=== PATIENT | male | born 1960 | race Caucasian/White ===

== ENCOUNTER → 2016-09-03 | Day surgery (SDC) | payer OTHER ==
[2016-09-02 09:53] VITALS: Ht 170.2 cm; Wt 97.7 kg
[~2016-09-03] VITALS: Ht 170.2 cm; Wt 97.7 kg
[~2016-09-03] MED LIST: ATOR-24 PO; ATOR-54 PO; ATROPINE SULFATE 0.1 MG/ML 5ML SYR IV PRN; BACITRACIN OINT 15 GM TUBE ONE; BUPIVACAINE/EPINEPHRINE 0.5% MPF 1:200,000 30 ML VIAL ONE; CEFAZOLIN 2000 MG/60 ML D5W IV SCH; CHOL100010 PO; ENAL10TA88 PO; EpHEDrine SULFATE INJ 50 MG/ML AMP IV PRN; FENTANYL CITRATE INJ 50 MCG/1 ML 2 ML VIAL IV PRN; FENTANYL CITRATE INJ 50 MCG/1 ML 2 ML VIAL ONE; FLUMAZENIL 0.1 MG/1 ML 10 ML VIAL IV PRN; FOLI1TAB7 PO; HYDROmorphone INJ 2 MG/ML SYR/VIAL IV PRN; IBUPROFEN 600 MG TAB PO PRN; KETOROLAC TROMETHAMINE 30 MG/ML VIAL IV. PRN; LABETALOL HCL IV 5 MG/ML 20ML IV PRN; LACT10SO17 PO; LACTATED RINGER'S 1000ML 1,000 ML IV SCH; LIDOCAINE HCL 2% 2 ML VIAL (20MG/ML) ONE; MAGN400T6 PO; MEPERIDINE HCL 25 MG/ML CARP IV PRN; METO100T7 PO; MIDAZOLAM HCL 1 MG/ML 2ML VIAL ONE; NALOXONE HCL 0.4 MG/1 ML VIAL/CARP IV PRN; ONDANSETRON INJ 2 MG/ML 2 ML VIAL IV PRN; OXYCODONE/ACETAMINOPHEN 5-325 TAB PO PRN; PANT40TA PO; PHENYLEPHRINE 100MCG/ML 5ML SYR IV PRN; PROPOFOL IV EMULSION 10 MG/ML 20 ML VIAL IV ONE; SERT50TA PO; SODIUM CHLORIDE 0.9% 1000ML 1,000 ML IV SCH; THIA1TAB PO
--- NOTE | 2016-09-03 09:54 | History & Physical Bridge Note ---
H&P Re-Evaluation Bridge Note: I have examined the patient, reviewed the History & Physical and in the interval since the performance of the History & Physical I have noted the following changes of clinical significance: No changes noted
--- NOTE | 2016-09-03 10:09 | Discharge Instructions-SurgCtr ---
Discharge Instructions Visit Reason for Visit: Sebaceous Cysts X 2 On Back; Left Groin Skin Tag Discharge Discharge Diagnosis / Problem: sebaceous cysts times 2 on back; skin tag on groin Discharge Goals Goal(s): Decrease discomfort, Improve function Activity Recommendations Activity Limitations: resume your previous activity Exercise/Sports Limitations: until after follow-up appointment May Resume Sexual Activity: when tolerated Shower/Bathe: tomorrow Anesthesia . Post Anesthesia Instructions: If you have had General Anesthesia or IV Sedation: * Do not drive today. * Resume driving when surgeon permits. * Do not make important decisions or sign legal documents today. * Call surgeon for: 1. Temperature elevations greater than 101 degrees F. 2. Uncontrollable pain. 3. Excessive bleeding. 4. Persistent nausea and vomiting. 5. Medication intolerance (nausea, vomiting or rash). * For nausea and vomiting use only clear liquids such as: tea, soda, bouillon until nausea subsides, then gradually increase diet as tolerated. * If you have any concerns or questions, call your surgeon's office. If physician is unavailable and it is an emergency, call 911 or go to the nearest emergency room. . Diet Recommendations Home Diet: resume previous diet Procedures Procedures Performed: exicsion of back cysts times 2 and groin skin tag Pending Studies Studies pending at discharge: yes (pathology reports) Medical Emergencies . Who to Call and When: Medical Emergencies: If at any time you feel your situation is an emergency, please call 911 immediately. . Non-Emergent Contact Non-Emergency issues call your: Primary Care Provider, Surgeon Call Non-Emergent contact if: temperature is above 101, wound has increased drainage, wound has increased redness . . "Provider Documentation" section prepared by Gamal Thomason.
[2016-09-03 10:53] VITALS: TEMP 36.4
--- NOTE | 2016-09-03 10:58 | [facility] Operative Report ---
Operative Report Operative Date Sep 03, 2016. Pre-Operative Diagnosis Sebaceous Cyst On Back x2, Left Groin Skin Tag Procedure(s) Performed excision heri cysts times 2 back; excision skin tag groin Surgeon Dr. Thomason Formula Room Worker Surgeon(s) None Estimated Blood Loss 5 ml Specimens A.) Sebaceous Cyst On Back X2 Anesthesia mac Complication(s) None Disposition Recovery Room / PACU I attest to the content of the Intraoperative Record and any orders documented therein. Any exceptions are noted below.
--- NOTE | 2016-09-03 11:09 | Anesthesia Progress Nt - [facility] ---
Anesthesia Post Op Note Date & Time Sep 03, 2016 at 11:09 Vital Signs Pain Intensity: 0 Vital Signs Past 12 Hours Date Time Temp Pulse Resp B/P Pulse Ox O2 Delivery O2 Flow Rate FiO2 09/03/16 09:06 36.3 75 16 138/91 95 Room Air Notes Mental Status: alert / awake / arousable, participated in evaluation Pt Amnestic to Procedure: Yes Nausea / Vomiting: adequately controlled Pain: adequately controlled Airway Patency, RR, SpO2: stable & adequate BP & HR: stable & adequate Hydration State: stable & adequate Anesthetic Complications: no major complications apparent
[2016-09-03 11:23] VITALS: BP 119/74; PULSE 52; O2SAT 97
--- NOTE | 2016-09-03 11:27 | OPERATIVE REPORT ---
DATE OF OPERATION: 09/03/2016 PREOPERATIVE DIAGNOSIS: Symptomatic cyst of the upper back, as well as a symptomatic groin skin tag. POSTOPERATIVE DIAGNOSIS: Same. PROCEDURE: 1. Excision of sebaceous cyst x2 on the back, one measuring 3 cm and one measuring 4 cm. 2. Excision of skin tag of the left groin measuring 1 cm. SURGEON: Dr. Thomason. ESTIMATED BLOOD LOSS: 15 mL. COMPLICATIONS: No immediate. ANESTHESIA: MAC with local Marcaine. OPERATIVE NOTE: After informed consent was obtained, the patient was taken to the operating suite, and placed in a prone position. IV sedation was administered by anesthesia and titrated to effect. The upper back was sterilely prepped and draped in the usual fashion. We injected with Marcaine with epinephrine around both of the upper back soft tissue cysts. We used a 10 blade scalpel to make a linear incision over the palpable cyst. Once in the skin, electrocautery, as well as blunt dissection was used to free up the cysts. They were both removed in their entirety. They were consistent with sebaceous cysts. We thoroughly irrigated the wounds. I closed both wounds with 3-0 Vicryl for the deep layers and 3-0 simple interrupted nylon for the skin. Antibiotic ointment and sterile dressings were applied. The patient was then rolled over into a supine position. The right groin skin tag was prepped. I used Marcaine as a local anesthetic. I simply excised the skin tag at its base with electrocautery. It did not require suturing. I placed some antibiotic ointment and a sterile dressing. The patient was then awakened and transferred to recovery in stable condition. I attest to the content of the Intraoperative Record and any orders documented therein. Any exceptio ns are noted below.
== END | disposition home or self-care (01) ==
LOC: X.SURG 08:44
PROVIDERS: ATTEND Surgery
DX: L72.0 Epidermal cyst (principal); L91.8 Other hypertrophic disorders of the skin; F41.9 Anxiety disorder, unspecified; I25.10 Atherosclerotic heart disease of native coronary artery without angina pectoris; R73.9 Hyperglycemia, unspecified; E78.5 Hyperlipidemia, unspecified; I10 Essential (primary) hypertension; I73.9 Peripheral vascular disease, unspecified; E55.9 Vitamin D deficiency, unspecified; Z79.899 Other long term (current) drug therapy

== ENCOUNTER → 2016-12-26 | Outpatient (CLI) | payer OTHER ==
[~2016-12-26] MED LIST changes: -ATROPINE SULFATE 0.1 MG/ML 5ML SYR IV PRN; -BACITRACIN OINT 15 GM TUBE ONE; +BACL1TAB PO; -BUPIVACAINE/EPINEPHRINE 0.5% MPF 1:200,000 30 ML VIAL ONE; -CEFAZOLIN 2000 MG/60 ML D5W IV SCH; +CHOL100041 PO; -EpHEDrine SULFATE INJ 50 MG/ML AMP IV PRN; -FENTANYL CITRATE INJ 50 MCG/1 ML 2 ML VIAL IV PRN; -FENTANYL CITRATE INJ 50 MCG/1 ML 2 ML VIAL ONE; -FLUMAZENIL 0.1 MG/1 ML 10 ML VIAL IV PRN; -HYDROmorphone INJ 2 MG/ML SYR/VIAL IV PRN; -IBUPROFEN 600 MG TAB PO PRN; -KETOROLAC TROMETHAMINE 30 MG/ML VIAL IV. PRN; -LABETALOL HCL IV 5 MG/ML 20ML IV PRN; -LACTATED RINGER'S 1000ML 1,000 ML IV SCH; -LIDOCAINE HCL 2% 2 ML VIAL (20MG/ML) ONE; -MEPERIDINE HCL 25 MG/ML CARP IV PRN; -MIDAZOLAM HCL 1 MG/ML 2ML VIAL ONE; -NALOXONE HCL 0.4 MG/1 ML VIAL/CARP IV PRN; -ONDANSETRON INJ 2 MG/ML 2 ML VIAL IV PRN; -OXYCODONE/ACETAMINOPHEN 5-325 TAB PO PRN; -PHENYLEPHRINE 100MCG/ML 5ML SYR IV PRN; -PROPOFOL IV EMULSION 10 MG/ML 20 ML VIAL IV ONE; -SODIUM CHLORIDE 0.9% 1000ML 1,000 ML IV SCH
[2016-12-26 15:42] LABS: BASO % 0.1 %; BASO ABS # 0.01 K/uL (0-0.2); COMPLETE YES; EOS % 1.4 %; HEMATOCRIT 48.1 % (42-52); IG% 0.1 %; MEAN CELL VOLUME 91.8 fL (80-100); MEAN CORPUSCULAR HEMOGLOBIN 31.5 pg (25-34); MEAN CORPUSCULAR HGB CONC 34.3 g/dl (32-36); MEAN PLATELET VOLUME 11.8 fL (7.4-10.4); MONO % 6.6 %; NEUT % 72.8 %; PLATELET COUNT 107 K/uL (130-400); RED BLOOD COUNT 5.24 M/uL (4.7-6.1); WHITE BLOOD COUNT 7.37 K/uL (4.8-10.8)
[2016-12-26 16:09] LABS: CALCIUM 9.4 mg/dl (8.5-10.1)
[2016-12-26 16:10] LABS: ALT/SGPT 31 U/L (12-78); BLOOD UREA NITROGEN 19 mg/dl (7-18); BUN/CREATININE RATIO 16.1 (10-20); CARBON DIOXIDE 28 mmol/L (21-32); CHLORIDE 104 mmol/L (98-107); CHOLESTEROL 127 mg/dl (0-200); GLUCOSE 78 mg/dl (70-99); MAGNESIUM 2.3 mg/dl (1.8-2.4); POTASSIUM 4.4 mmol/L (3.5-5.1); SODIUM 138 mmol/L (136-145); TRIGLYCERIDES 82 mg/dl (0-150); VERY LOW DENSITY LIPOPROT CALC 16 mg/dl
[2016-12-26 16:14] LABS: ALB/GLOB RATIO 1.3 (0.9-2); ALKALINE PHOSPHATASE 66 U/L (45-117); AST/SGOT 27 U/L (15-37); CHOLESTEROL/HDL RATIO 2.3; HDL CHOLESTEROL 56 mg/dl; LDL CHOLESTEROL CALCULATED 55 mg/dl; PROSTATE SPECIFIC ANTIGEN 0.645 ng/ml (0.000-4.000)
== END | disposition home or self-care (01) ==
LOC: C.LAB1850 14:58
PROVIDERS: ATTEND Internal Medicine
DX: Z12.5 Encounter for screening for malignant neoplasm of prostate (principal); E83.19 Other disorders of iron metabolism; E78.5 Hyperlipidemia, unspecified; E83.42 Hypomagnesemia; D69.6 Thrombocytopenia, unspecified

== ENCOUNTER → 2017-02-26 | Day surgery (SDC) | payer OTHER ==
[2017-02-19 12:34] VITALS: Ht 170.2 cm; Wt 97.7 kg
[~2017-02-26] VITALS: Ht 170.2 cm; Wt 97.7 kg
[~2017-02-26] MED LIST changes: -ATOR-54 PO; -BACL1TAB PO; -CHOL100041 PO; +FENTANYL CITRATE INJ 50 MCG/1 ML 2 ML VIAL ONE; +LIDOCAINE HCL 2% 2 ML VIAL (20MG/ML) ONE; +PROPOFOL IV EMULSION 10 MG/ML 20 ML VIAL IV ONE; +SODIUM CHLORIDE 0.9% 500ML 500 ML IV ONE
--- NOTE | 2017-02-26 13:45 | Endo History and Physical ---
History & Physical Date of Service: Feb 26, 2017. Chief Complaint: ESOPHAGEAL VARICES Referring Physician: DR. MONAE History of Present Illness 56 yo CM who presents for EGD secondary to esophageal varices. Past Medical History Arthritis, Anxiety, High Cholesterol, Heart Disease, Liver Disease, Other, Depression, OK Past Surgical History Hx Cardiac Surgery: Yes (HEART CATH, STENT X1) Hx Internal Defibrillator: No Hx Pacemaker: No Hx Abdominal Surgery: Yes (ANDREI) Hx of Implantable Prosthesis: No Hx Post-Op Nausea and Vomiting: No Hx Cancer Surgery: No Hx Thoracic Surgery: No Hx Orthopedic: No Hx Urinary Tract Surgery: No Family History None Social History Smoking Status: Never Smoker Hx Substance Use: Yes (SMOKES MARIJUANA NIGHTLY) Hx Alcohol Use: Yes (QUIT 5 YEARS AGO) Allergies Coded Allergies: Heparin (Verified Allergy, Severe, 03/18/12, HIT AB POSITIVE, BUT VERONA NEGATIVE, 02/19/17) 03/18/12 ([id number]) HIT AB POSITIVE, BUT VERONA NEGATIVE Aspirin (Verified Adverse Reaction, Severe, N/V, 02/26/17) Acetaminophen (Unverified Adverse Reaction, Unknown, GI SYMPTOMS, 02/19/17) liver condition Adhesives (Verified Adverse Reaction, Unknown, RASH, 02/19/17) Current Medications Reported Home Medications Medications Dose Route/Sig Max Daily Dose Days Date Category Lipitor (Atorvastatin Calcium) 40 Mg Tab 40 Mg PO QPM 02/19/17 Reported Zoloft (Sertraline Hcl) 50 Mg Tab 50 Mg PO QAM 09/02/16 Reported Vitamin D (Cholecalciferol) 1,000 Inter.unit Tab 1,000 Inter.unit PO QAM 03/02/14 Reported Vasotec (Enalapril Maleate) 10 Mg Tab 10 Mg PO QAM 03/02/14 Reported Mag-Ox (Magnesium Oxide) 400 Mg Tab 400 Mg PO QAM 01/02/13 Reported B-1 (Thiamine Hcl) 100 Mg Tab 100 Mg PO QAM 12/01/12 Reported Chronulac (Lactulose) 10 Gm/15 Ml Syrp 15 Ml PO BID 12/01/12 Reported Folvite (Folic Acid) 1 Mg Tab 1 Mg PO QAM 12/01/12 Reported Toprol Xl (Metoprolol Succinate) 100 Mg Tab 100 Mg PO QAM 12/01/12 Reported Protonix (Pantoprazole Sodium) 40 Mg Tab 40 Mg PO QAM 05/02/12 Reported Vital Signs Weight (Kilograms): 97.73 Height (Feet): 5 Height (Inches): 7 Date Time Temp Pulse Resp B/P (MAP) Pulse Ox O2 Delivery O2 Flow Rate FiO2 02/26/17 13:20 36.5 54 20 128/72 (90) 96 Room Air Physical Exam General Appearance: WD/WN, no apparent distress Respiratory/Chest: Auscultation: breath sounds normal Cardiovascular: Heart Auscultation: RRR Abdomen: Bowel Sounds: normal Inspection & Palpation: soft, non-distended, no tenderness, guarding & rebound Assessment and Plan Assessment: 56 yo CM who presents for EGD secondary to esophageal varices. Plan: Proceed with EGD.
--- NOTE | 2017-02-26 14:04 | GI REPORT ---
Procedure Date: 02/26/2017 1:44 PM Procedure: Upper GI endoscopy Indications: Cirrhosis rule out esophageal varices Medicines: Monitored Anesthesia Care Complications: No immediate complications. Estimated Blood Loss: Estimated blood loss: none. Procedure: Pre-Anesthesia Assessment: - Prior to the procedure, a History and Physical was performed, and patient medications and allergies were reviewed. The patient's tolerance of previous anesthesia was also reviewed. The risks and benefits of the procedure and the sedation options and risks were discussed with the patient. All questions were answered, and informed consent was obtained. Prior Anticoagulants: The patient has taken no previous anticoagulant or antiplatelet agents. ASA Grade Assessment: III - A patient with severe systemic disease. After reviewing the risks and benefits, the patient was deemed in satisfactory condition to undergo the procedure. After obtaining informed consent, the endoscope was passed under direct vision. Throughout the procedure, the patient's blood pressure, pulse, and oxygen saturations were monitored continuously. The scope was introduced through the mouth, and advanced to the second part of duodenum. The upper GI endoscopy was accomplished without difficulty. The patient tolerated the procedure well. Findings: The Z-line was irregular. Biopsies were taken with a cold forceps for histology. A small hiatus hernia was present. Multiple 3 to 8 mm sessile polyps with no stigmata of recent bleeding were found in the stomach. The examined duodenum was normal. Impression: - Z-line irregular. Biopsied. - Small hiatus hernia. - Multiple gastric polyps. - Normal examined duodenum. Recommendation: - Resume previous diet. - Continue present medications. - Await pathology results. - Return to GI office as previously scheduled. Vinicius Roe, DO 02/26/2017 2:03:55 PM This report has been signed electronically. Note Initiated On: 02/26/2017 1:44 PM I attest to the content of the Intraoperative Record and orders documented therein, exceptions below
--- NOTE | 2017-02-26 14:05 | Discharge Instructions ---
Endoscopy Patient Instructions Date / Procedure(s) Performed Feb 26, 2017. EGD Allergy Information Coded Allergies: Heparin (Verified Allergy, Severe, 03/18/12, HIT AB POSITIVE, BUT VERONA NEGATIVE, 02/19/17) 03/18/12 ([id number]) HIT AB POSITIVE, BUT VERONA NEGATIVE Aspirin (Verified Adverse Reaction, Severe, N/V, 02/26/17) Acetaminophen (Unverified Adverse Reaction, Unknown, GI SYMPTOMS, 02/19/17) liver condition Adhesives (Verified Adverse Reaction, Unknown, RASH, 02/19/17) Discharge Date / Findings Feb 26, 2017. Esophageal biopsies Hiatal hernia Gastric polyps Medication Instructions OK to resume all medications today as prescribed Reported Home Medications Medications Dose Route/Sig Max Daily Dose Days Date Category Lipitor (Atorvastatin Calcium) 40 Mg Tab 40 Mg PO QPM 02/19/17 Reported Zoloft (Sertraline Hcl) 50 Mg Tab 50 Mg PO QAM 09/02/16 Reported Vitamin D (Cholecalciferol) 1,000 Inter.unit Tab 1,000 Inter.unit PO QAM 03/02/14 Reported Vasotec (Enalapril Maleate) 10 Mg Tab 10 Mg PO QAM 03/02/14 Reported Mag-Ox (Magnesium Oxide) 400 Mg Tab 400 Mg PO QAM 01/02/13 Reported B-1 (Thiamine Hcl) 100 Mg Tab 100 Mg PO QAM 12/01/12 Reported Chronulac (Lactulose) 10 Gm/15 Ml Syrp 15 Ml PO BID 12/01/12 Reported Folvite (Folic Acid) 1 Mg Tab 1 Mg PO QAM 12/01/12 Reported Toprol Xl (Metoprolol Succinate) 100 Mg Tab 100 Mg PO QAM 12/01/12 Reported Protonix (Pantoprazole Sodium) 40 Mg Tab 40 Mg PO QAM 05/02/12 Reported Provider Instructions Activity Restrictions - No exercising or heavy lifting for 24 hours. - Do not drink alcohol the day of the procedure. - Do not drive a car or operate machinery until the day after the procedure. - Do not make any important decisions or sign important papers in 24 hours after the procedure. Following Day: - Return to full activity which may include returning to work/school. Diet Start your diet with liquids and light foods (jello, soup, juice, toast). Then eat your usual diet if not nauseated. Treatment For Common After Affects For mild abdominal pain, bloating, or excessive gas: - Rest - Eat lightly - Lie on right side Follow-Up Information Follow-up with DR. MONAE as scheduled Anesthesia Information What You Should Know You have had a procedure that required some medicine to reduce anxiety and discomfort. This treatment is called moderate sedation. After receiving the treatment, you may be sleepy, but you will be able to breathe on your own. The effects of the treatment may last for several hours. Follow these instructions along with Activity/Diet recommendations noted above: * Do NOT do anything where dizziness or clumsiness would be dangerous. * Rest quietly at home today, then you can be up and about tomorrow. * Have a responsible person stay with you the rest of today. * You may have had an I.V. today. If so, you may take the dressing off later today. Recommendations Call your doctor if: * Trouble breathing * Continuous vomiting for more than 24 hours * Temperature above 101 degrees * Severe abdominal pain or bloating * Pain not relieved by pain medicine ordered * There is increased drainage or redness from any incision * A large amount of rectal bleeding greater than 2-3 tablespoons. (If you had a polyp/s removed or have hemorrhoids, a small amount of blood - from the rectum is to be expected.) * You have any unanswered questions or concerns. IN THE EVENT OF A SERIOUS EMERGENCY, GO TO THE NEAREST EMERGENCY ROOM Your discharge instructions were prepared by provider Vinicius Roe. Patient Instructions Signature Page José Mercedes Patient (or Guardian) Signature/Date: I have read and understand the instructions given to me by my caregivers. Caregiver/RN/Doctor Signature/Date: The above-named patient and/or guardian has received patient instructions on this date. + Original Patient Signature Page (only) stays with chart. Please make copy for patient.
--- NOTE | 2017-02-26 14:09 | Anesthesiology Progress Note ---
Anesthesia Post Op Note Date & Time Feb 26, 2017 at 14:09 Vital Signs Pain Intensity: 0 Vital Signs Past 12 Hours Date Time Temp Pulse Resp B/P (MAP) Pulse Ox O2 Delivery O2 Flow Rate FiO2 02/26/17 13:20 36.5 54 20 128/72 (90) 96 Room Air Notes Mental Status: alert / awake / arousable, participated in evaluation Pt Amnestic to Procedure: Yes Nausea / Vomiting: adequately controlled Pain: adequately controlled Airway Patency, RR, SpO2: stable & adequate BP & HR: stable & adequate Hydration State: stable & adequate Anesthetic Complications: no major complications apparent
[2017-02-26 14:33] VITALS: BP 100/46; PULSE 50; O2SAT 95
== END | disposition home or self-care (01) ==
LOC: C.GI 12:57
PROVIDERS: ATTEND Internal Medicine
DX: K70.30 Alcoholic cirrhosis of liver without ascites (principal); K44.9 Diaphragmatic hernia without obstruction or gangrene; K31.7 Polyp of stomach and duodenum; K20.9 Esophagitis, unspecified; E78.00 Pure hypercholesterolemia, unspecified; F41.9 Anxiety disorder, unspecified; F32.9 Major depressive disorder, single episode, unspecified; F10.21 Alcohol dependence, in remission; Z79.899 Other long term (current) drug therapy; I25.2 Old myocardial infarction

== ENCOUNTER → 2017-03-20 | Outpatient (CLI) | payer OTHER ==
[~2017-03-20] MED LIST changes: -FENTANYL CITRATE INJ 50 MCG/1 ML 2 ML VIAL ONE; -LIDOCAINE HCL 2% 2 ML VIAL (20MG/ML) ONE; -PROPOFOL IV EMULSION 10 MG/ML 20 ML VIAL IV ONE; -SODIUM CHLORIDE 0.9% 500ML 500 ML IV ONE
--- NOTE | 2017-03-20 11:23 | DIAGNOSTIC IMAGING REPORT ---
(LIVER) ABDOMEN LIMITED CLINICAL HISTORY: K74.60 Hepatic cirrhosis TECHNIQUE: Ultrasound COMPARISON STUDY: 10/30/2015 FINDINGS: Heterogeneous liver internal architecture with findings suggesting hepatic cirrhotic change. No change in the prior exam. Prior cholecystectomy. Perfusion components of the pancreas are unremarkable. Right kidney is negative for hydronephrosis. IMPRESSION: Findings suggesting hepatic cirrhotic change with no change in appearance compared to the prior study. Prior cholecystectomy. The above report was generated using voice recognition software. It may contain grammatical, syntax or spelling errors. Electronically signed by: Zi Loja M.D. 03/20/2017 11:22 AM Dictated Date/Time: 03/20/2017 11:17 AM
== END | disposition home or self-care (01) ==
LOC: C.ULTRBC 10:17
PROVIDERS: ATTEND Physician Assistant
DX: K74.60 Unspecified cirrhosis of liver (principal)

== ENCOUNTER 2017-06-07 12:21 | Emergency (ER) | payer OTHER ==
[~2017-06-07] VITALS: Ht 170.2 cm; Wt 106.5 kg
[2017-06-07 12:25] VITALS: TEMP 36.4
[2017-06-07 12:39] VITALS: O2SAT 97
[2017-06-07] MEDS ORDERED: DiphenhydrAMINE HCL 50 MG/ML VIAL IV STA (12:45)
[2017-06-07] MEDS ORDERED: SODIUM CHLORIDE 0.9% 1000ML 1,000 ML IV SCH (12:45)
[2017-06-07] MEDS ORDERED: PROCHLORPERAZINE 5 MG/ML 2 ML VIAL IV STA (12:45)
[2017-06-07 12:49] VITALS: Ht 170.2 cm; Wt 106.5 kg
[2017-06-07 13:12] LABS: BLOOD UREA NITROGEN 19 mg/dl (7-18); BUN/CREATININE RATIO 17.4 (10-20); CALCIUM 9.1 mg/dl (8.5-10.1); CARBON DIOXIDE 27 mmol/L (21-32); CHLORIDE 106 mmol/L (98-107); GLUCOSE 146 mg/dl (70-99); POTASSIUM 4.1 mmol/L (3.5-5.1); SODIUM 137 mmol/L (136-145)
--- NOTE | 2017-06-07 13:16 | EMERGENCY ROOM VISIT NOTE ---
History Report prepared by Melina: Madison Barrios Under the Supervision of: Dr. Radha Olivares M.D. First contact with patient: 12:29 Chief Complaint: NEURO SYMPTOMS Stated Complaint: SHOULDER PAIN, LEFT LOWER ARM PAIN, L FACE NUMBNES History of Present Illness The patient is a 57 year old male who presents to the Emergency Room with complaints of persistent numbness in left lower arm and left side of face that began over the past couple of days. The patient rates his pain a 6/10 in severity. He states that the pain is centered around his left elbow but it extends to the left side of the neck. The patient denies any speech difficulty or difficulty walking. He reports that he has a coronary stent in place. The patient notes that he has had a kidney stone and a "femur bypass" due to a blockage behind the knee in the past. He states that he is experiencing a headache and neck pain. The patient additionally reports nausea, but denies any vomiting. The patient notes that he occasionally uses marijuana. Source of History: patient Onset: past couple days Position: arm (left), other (left side of face) Symptom Intensity: 6/10 Quality: numbness Timing: other (persistent) Associated Symptoms: + headache, + neck pain, + nausea, No vomiting Review of Systems See HPI for pertinent positives & negatives. A total of 10 systems reviewed and were otherwise negative. Past Medical & Surgical Medical Problems: (1) Coronary artery disease (2) ESOPHAGEAL REFLUX (3) HYPERLIPIDEMIA NEC/NOS (4) Peripheral artery disease Surgical Problems: (1) S/P popliteal-distal bypass surgery Coronary artery disease Peripheral artery disease Family History Heart disease Social History Smoking Status: Never Smoker Alcohol Use: none Drug Use: marijuana Marital Status: single Housing Status: lives alone Occupation Status: other Current/Historical Medications Scheduled Atorvastatin (Lipitor), 40 MG PO QPM Baclofen (Lioresal), 10 MG PO TID Cholecalciferol (D 1000), 1 CAP PO DAILY Enalapril (Vasotec), 10 MG PO QAM Folic Acid (Folvite), 1 MG PO QAM Lactulose (Chronulac), 15 ML PO DAILY Magnesium Oxide (Mag-Ox), 400 MG PO QAM Metoprolol Succinate (Toprol Xl), 100 MG PO QAM Pantoprazole Sodium (Protonix), 40 MG PO QAM Thiamine Hcl (B-1), 100 MG PO QAM Allergies Coded Allergies: Heparin (Verified Allergy, Severe, 03/18/12, HIT AB POSITIVE, BUT VERONA NEGATIVE, 06/07/17) 03/18/12 ([id number]) HIT AB POSITIVE, BUT VERONA NEGATIVE Aspirin (Verified Adverse Reaction, Severe, N/V, 06/07/17) Acetaminophen (Unverified Adverse Reaction, Unknown, GI SYMPTOMS, 06/07/17 ) liver condition Adhesives (Verified Adverse Reaction, Unknown, RASH, 06/07/17) Physical Exam Vital Signs Date Time Temp Pulse Resp B/P (MAP) Pulse Ox O2 Delivery O2 Flow Rate FiO2 06/07/17 16:20 58 18 150/88 95 Room Air 06/07/17 14:26 57 16 140/82 97 Room Air 06/07/17 13:08 57 15 145/72 95 Room Air 06/07/17 12:51 60 06/07/17 12:39 97 Room Air 06/07/17 12:25 36.4 62 16 138/85 96 Room Air Physical Exam Vital signs reviewed. General: Well-appearing male, in no significant distress. HEENT: No scleral icterus, PERRLA, neck supple. Atraumatic. Cardiovascular: Regular rate and rhythm, no extra sounds. Pulmonary: Clear to auscultation bilaterally, normal work of breathing. Abdomen: Soft, nontender, nondistended, positive bowel sounds. Musculoskeletal: Atraumatic, no peripheral edema. Neurologic: Patient awake alert and oriented x 3, full strength in all 4 extremities. Cranial nerves 2 through 12 grossly intact. Skin: Warm, dry, no rash Medical Decision & Procedures ER Provider Diagnostic Interpretation: CT results as stated below per my review and radiologist interpretation: CT SCAN OF THE BRAIN WITHOUT IV CONTRAST CLINICAL HISTORY: Strokelike symptoms. COMPARISON STUDY: CT of the brain dated 08/02/2009. TECHNIQUE: Unenhanced axial CT scan of the brain is performed from the vertex to the skull base. CT DOSE: 614.27 mGy.cm FINDINGS: Brain parenchyma: There is minimal subcortical and periventricular microangiopathic change. Foci of left frontal and left parietal encephalomalacia are unchanged and consistent with remote infarcts. There is no hemorrhage, mass effect, or evidence of acute territorial ischemia by CT criteria. Brito-white matter is preserved. No extra-axial fluid collection is seen. Ventricles, sulci, cisterns: Normal in configuration. Intracranial vasculature: There is atherosclerotic calcification of the cavernous carotid and vertebral arteries. Calvarium: Unremarkable. Sinuses and mastoids: The visualized paranasal sinuses are clear. The mastoid air cells are well pneumatized. Orbits: The bony orbits are grossly intact. IMPRESSION: 1. There is no hemorrhage, mass effect, or evidence of acute territorial ischemia by CT criteria. 2. Remote infarcts as above, unchanged from 2009. Electronically signed by: Aristides Mendoza M.D. 06/07/2017 1:44 PM Dictated Date/Time: 06/07/2017 1:42 PM Laboratory Results 06/07/17 12:40 Red Blood Count 4.89, Mean Corpuscular Volume 89.2, Mean Corpuscular Hemoglobin 31.1, Mean Corpuscular Hemoglobin Concent 34.9, Mean Platelet Volume 12.0, Neutrophils (%) (Auto) 56.0, Lymphocytes (%) (Auto) 30.5, Monocytes (%) (Auto) 7.6, Eosinophils (%) (Auto) 4.4, Basophils (%) (Auto) 0.5, Neutrophils # (Auto) 2.15, Lymphocytes # (Auto) 1.17, Monocytes # (Auto) 0.29, Eosinophils # (Auto) 0.17, Basophils # (Auto) 0.02 06/07/17 12:40 Test 06/07/17 12:40 06/07/17 12:54 06/07/17 13:10 White Blood Count 3.84 K/uL (4.8-10.8) Red Blood Count 4.89 M/uL (4.7-6.1) Hemoglobin 15.2 g/dL (14.0-18.0) Hematocrit 43.6 % (42-52) Mean Corpuscular Volume 89.2 fL (80-100) Mean Corpuscular Hemoglobin 31.1 pg (25-34) Mean Corpuscular Hemoglobin Concent 34.9 g/dl (32-36) Platelet Count 91 K/uL (130-400) Mean Platelet Volume 12.0 fL (7.4-10.4) Neutrophils (%) (Auto) 56.0 % Lymphocytes (%) (Auto) 30.5 % Monocytes (%) (Auto) 7.6 % Eosinophils (%) (Auto) 4.4 % Basophils (%) (Auto) 0.5 % Neutrophils # (Auto) 2.15 K/uL (1.4-6.5) Lymphocytes # (Auto) 1.17 K/uL (1.2-3.4) Monocytes # (Auto) 0.29 K/uL (0.11-0.59) Eosinophils # (Auto) 0.17 K/uL (0-0.5) Basophils # (Auto) 0.02 K/uL (0-0.2) RDW Standard Deviation 39.6 fL (36.4-46.3) RDW Coefficient of Variation 12.4 % (11.5-14.5) Immature Granulocyte % (Auto) 1.0 % Immature Granulocyte # (Auto) 0.04 K/uL (0.00-0.02) Platelet Estimate DECREASED Prothrombin Time 10.5 SECONDS (9.0-12.0) Prothromb Time International Ratio 1.0 (0.9-1.1) Activated Partial Thromboplast Time 24.5 SECONDS (21.0-31.0) Partial Thromboplastin Ratio 0.9 Anion Gap 5.0 mmol/L (3-11) Est Creatinine Clear Calc Drug Dose 87.3 ml/min Estimated GFR () 86.5 Estimated GFR (Non- 74.6 BUN/Creatinine Ratio 17.4 (10-20) Calcium Level 9.1 mg/dl (8.5-10.1) Total Creatine Kinase 151 U/L (39-308) Creatine Kinase MB 2.0 ng/ml (0.5-3.6) Creatine Kinase MB Ratio 1.3 (0-3.0) Troponin I < 0.015 ng/ml (0-0.045) Bedside Prothrombin Time INR 1.0 (0.9-1.1) Bedside Glucose 125 mg/dl (70-99) Urine Color YELLOW Urine Appearance CLEAR (CLEAR) Urine pH 5.5 (4.5-7.5) Urine Specific [place] 1.030 (1.000-1.030) Urine Protein NEG (NEG) Urine Glucose (UA) NEG (NEG) Urine Ketones NEG (NEG) Urine Occult Blood NEG (NEG) Urine Nitrite NEG (NEG) Urine Bilirubin NEG (NEG) Urine Urobilinogen NEG (NEG) Urine Leukocyte Esterase NEG (NEG) Urine Opiates Screen NEG (NEG) Urine Methadone, Qualitative NEG (NEG) Urine Barbiturates NEG (NEG) Urine Phencyclidine (PCP) Level NEG (NEG) Ur Amphetamine/Methamphetamine NEG (NEG) MDMA (Ecstasy) Screen NEG (NEG) Urine Benzodiazepines Screen NEG (NEG) Urine Cocaine Metabolite NEG (NEG) Urine Marijuana (THC) POS (NEG) Laboratory results per my review. Medications Administered Medications (Trade) Dose Ordered Sig/Issac Route Start Time Stop Time Status Last Admin Dose Admin Sodium Chloride 1,000 ml @ 100 mls/hr Q10H IV 06/07/17 12:45 06/07/17 17:10 DC 06/07/17 13:01 100 MLS/HR Prochlorperazine Edisylate (Compazine Inj) 10 mg NOW STAT IV 06/07/17 12:45 06/07/17 12:48 DC 06/07/17 13:01 10 MG Diphenhydramine HCl (Benadryl Inj) 25 mg NOW STAT IV 06/07/17 12:45 06/07/17 12:48 DC 06/07/17 13:01 25 MG Hydroxyzine HCl (Vistaril Tab) 25 mg NOW STAT PO 06/07/17 14:18 06/07/17 14:19 DC 06/07/17 14:31 25 MG ECG Indication: other (numbness) Rate (beats per minute): 62 Rhythm: normal sinus Findings: LAFB, RBBB, no ectopy, other (repolarization abnormality in the anteiror leads) ED Course 1244: Past medical records reviewed. The patient was evaluated in room A10. A complete history and physical examination was performed. 1245: Ordered Benadryl Inj 25 mg IV, Compazine Inj 10 mg IV, Sodium Chloride 1000 ml @ 100 mls/hr IV. 141: I reevaluated the patient and he is resting comfortably. I discussed the exam findings with him and I discussed the treatment plan. He verbalized complete understanding and agreement. He is going to be evaluated for further treatment. 1418: Vistaril Tab 25 mg PO. 1445: I discussed the patient's case with Dr. Barrios [facility]. He is going to evaluate the patient for further treatment. Medical Decision Differential diagnosis: Etiologies such as metabolic, infection, hypo/hyperglycemia, electrolyte abnormalities, cardiac sources, intracerebral event, toxicologic, neurologic, as well as others were entertained. This pt was evaluated and appeared to be in no distress. IV access was obtained and lab work was drawn. Patient's symptomatology including left facial numbness, shoulder and arm numbness is concerning for TIA. CT scan of the head was performed and reveals old infarct. Patient chose a normal sinus rhythm with a left anterior fascicular block, right bundle branch block on EKG. No evidence of acute ischemic change. He is a vasculopath with a previous arterial bypass and cardiac stent. While this may be orthopedic in nature, I am concerned for potential cerebral event. The patient has no acute neurologic deficit at this time. The patient will be evaluated by the hospitalist service for further management. He is aware of the plan and agrees. Medication Reconcilliation Current Medication List: was personally reviewed by me Consults Time Called: 1424 Consulting Physician: JOSE CARLOS Eaton Returned Call: [phone] I discussed the patient's case with JOSE CARLOS Eaton. He is going to evaluate the patient for further treatment. Impression Primary Impression: TIA (transient ischemic attack) Scribe Attestation The scribe's documentation has been prepared under my direction and personally reviewed by me in its entirety. I confirm that the note above accurately reflects all work, treatment, procedures, and medical decision making performed by me. Departure Information Dispostion Being Evaluated By Hospitalist Prescriptions Baclofen (LIORESAL) 10 Mg Tab 10 MG PO TID for 10 Days, #30 TAB Prov: Anderson Houston MD 06/07/17 Referrals RV. Root MD (PCP)
[2017-06-07 13:17] LABS: CKMB/CK RATIO 1.3 (0-3.0)
[2017-06-07 13:23] LABS: BASO % 0.5 %; BASO ABS # 0.02 K/uL (0-0.2); COMPLETE YES; EOS % 4.4 %; HEMATOCRIT 43.6 % (42-52); LYMPH % 30.5 %; LYMPH ABS # 1.17 K/uL (1.2-3.4); MEAN CELL VOLUME 89.2 fL (80-100); MEAN CORPUSCULAR HEMOGLOBIN 31.1 pg (25-34); MEAN CORPUSCULAR HGB CONC 34.9 g/dl (32-36); MONO % 7.6 %; PLATELET COUNT 91 K/uL (130-400); PLT ESTIMATE DECREASED; RED BLOOD COUNT 4.89 M/uL (4.7-6.1); WHITE BLOOD COUNT 3.84 K/uL (4.8-10.8)
[2017-06-07 13:26] LABS: URINE APPEARANCE CLEAR (CLEAR); URINE BILIRUBIN NEG (NEG); URINE COLOR YELLOW; URINE NITRITE NEG (NEG); URINE PH 5.5 (4.5-7.5); UROBILINOGEN NEG (NEG); ZZUR CULT IF INDIC CLEAN CATCH NO
[2017-06-07 13:26] LABS: PARTIAL THROMBOPLASTIN RATIO 0.9; PROTHROMBIN TIME (PATIENT) 10.5 SECONDS (9.0-12.0)
[2017-06-07 13:30] LABS: MANUAL MICROSCOPIC REQUIRED? NO; REVIEW REQ? NO
--- NOTE | 2017-06-07 13:46 | DIAGNOSTIC IMAGING REPORT ---
CT SCAN OF THE BRAIN WITHOUT IV CONTRAST CLINICAL HISTORY: Strokelike symptoms. COMPARISON STUDY: CT of the brain dated 08/02/2009. TECHNIQUE: Unenhanced axial CT scan of the brain is performed from the vertex to the skull base. CT DOSE: 614.27 mGy.cm FINDINGS: Brain parenchyma: There is minimal subcortical and periventricular microangiopathic change. Foci of left frontal and left parietal encephalomalacia are unchanged and consistent with remote infarcts. There is no hemorrhage, mass effect, or evidence of acute territorial ischemia by CT criteria. Brito-white matter is preserved. No extra-axial fluid collection is seen. Ventricles, sulci, cisterns: Normal in configuration. Intracranial vasculature: There is atherosclerotic calcification of the cavernous carotid and vertebral arteries. Calvarium: Unremarkable. Sinuses and mastoids: The visualized paranasal sinuses are clear. The mastoid air cells are well pneumatized. Orbits: The bony orbits are grossly intact. IMPRESSION: 1. There is no hemorrhage, mass effect, or evidence of acute territorial ischemia by CT criteria. 2. Remote infarcts as above, unchanged from 2008. Electronically signed by: Aristides Mendoza M.D. 06/07/2017 1:44 PM Dictated Date/Time: 06/07/2017 1:42 PM
[2017-06-07 13:49] LABS: BENZODIAZEPINE, URINE NEG (NEG); COCAINE,URINE NEG (NEG); PHENCYCLIDINE, URINE NEG (NEG)
[2017-06-07] MEDS ORDERED: CHOL100041 PO (13:50)
[2017-06-07] MEDS ORDERED: hydrOXYzine HCL 25 MG TAB PO STA (14:18)
[2017-06-07] MEDS ORDERED: OPTIRAY 320 IV PRN (15:15)
--- NOTE | 2017-06-07 15:55 | DIAGNOSTIC IMAGING REPORT ---
CT SCAN OF THE CERVICAL SPINE WITH IV CONTRAST CLINICAL HISTORY: Left upper extremity radiculopathy. Shoulder pain. COMPARISON STUDY: CT scan of the cervical spine dated to. TECHNIQUE: CT scan of the cervical spine is performed from the skull base to the upper thoracic spine following the IV administration of 102 cc of Optiray 320. Images are reviewed in the axial, sagittal, and coronal planes. IV contrast was administered without complication. A dose lowering technique was utilized adhering to the principles of ALARA. CT DOSE: 308.94 mGy.cm FINDINGS: Skeletal structures: The skeletal structures are well mineralized. There is no evidence of fracture or subluxation involving the cervical spine. Vertebral body height and alignment are maintained. There is straightening of the cervical lordosis with reversal centered at C4-C5. The odontoid process and lateral masses are intact. The atlantoaxial articulation is preserved noting mild productive degenerative change. The spinous processes appear intact. Degenerative plate sclerosis is seen at C5-C6 and C6-C7. Anterior osteophytes are seen in the lower cervical region. Uncovertebral and facet arthropathy contribute to moderate severe bilateral neural foraminal stenosis at C5-C6 and C6-C7. This is greatest on the right at C6-C7. Intervertebral discs: Moderate disc space narrowing is seen at C5-C6, C6-C7, and C7-T1. The remaining disc spaces are well maintained. Central canal: Posterior disc osteophyte complexes at C5-C6 and C6-C7 likely contribute to acquired compromise of the central canal. Soft tissues: The prevertebral and paraspinous soft tissues are within normal limits. The carotid arteries and jugular veins are widely patent. No enhancing soft tissue lesion is seen. Calvarium: The visualized calvarium at the skull base appears intact. Brain parenchyma: Partially visualized brain parenchyma the skull base is within normal limits. Sinuses and mastoids: Mild mucosal thickening is seen in the sphenoid sinuses. There is a left mastoid effusion. The right mastoid air cells are well pneumatized. IMPRESSION: 1. There is no evidence of fracture or subluxation involving the cervical spine. 2. Cervical spondylosis as above, greatest at C5-C6 and C6-C7. 3. No enhancing lesion is identified. Electronically signed by: Aristides Mendoza M.D. 06/07/2017 3:54 PM Dictated Date/Time: 06/07/2017 3:47 PM
[2017-06-07] MEDS ORDERED: BACL1TAB PO (16:15)
[2017-06-07 16:20] VITALS: BP 150/88; PULSE 58; O2SAT 95
--- NOTE | 2017-06-07 16:43 | Medical Consult ---
Consultation Date of Consultation: Jun 07, 2017. Attending Physician: Reason for Consultation: Bilateral upper extremity dysesthesias and left arm pain History of Present Illness The patient is a 57-year-old male who presents to the emergency department with complaint of bilateral numbness/tingling sensations in both hands, left worse than right, and positional numbness in her left arm to be worse when sitting upright. He also reports discomfort over his left neck and shoulder muscles. He's had no history of trauma in the past or recently. He has not had any difficulty with speech or walking or swallowing. He denies numbness or tingling or weakness in legs. Past Medical/Surgical History Medical Problems: (1) Neck pain Status: Acute (2) TIA (transient ischemic attack) Status: Acute Family History Heart disease Social History Smoking Status: Never Smoker Smokeless Tobacco Use: No Alcohol Use: none Drug Use: marijuana Marital Status: single Housing Status: lives alone Occupation Status: other Allergies Coded Allergies: Heparin (Verified Allergy, Severe, 03/18/12, HIT AB POSITIVE, BUT VERONA NEGATIVE, 06/07/17) 03/18/12 ([id number]) HIT AB POSITIVE, BUT VERONA NEGATIVE Aspirin (Verified Adverse Reaction, Severe, N/V, 06/07/17) Acetaminophen (Unverified Adverse Reaction, Unknown, GI SYMPTOMS, 06/07/17 ) liver condition Adhesives (Verified Adverse Reaction, Unknown, RASH, 06/07/17) Current Inpatient Medications Current Inpatient Medications Medications (Trade) Dose Ordered Sig/Issac Route Start Time Stop Time Status Last Admin Dose Admin Sodium Chloride 1,000 ml @ 100 mls/hr Q10H IV 06/07/17 12:45 07/07/17 12:44 06/07/17 13:01 100 MLS/HR Ioversol (Optiray 320) 100 ml UD PRN IV 06/07/17 15:15 06/11/17 15:14 Review of Systems The patient denies chest pain, palpitations, shortness of breath, cough, lower extremity swelling, vision change, hearing change, sore throat, fevers, chills, sweats, weight change, fatigue, nausea, vomiting, diarrhea or constipation, abdominal pain, pelvic pain, blood in urine or stool, dysuria, urinary frequency or urgency, lightheadedness , dizziness, memory loss, rash, abnormal bruising or bleeding, imbalance, generalized weakness, numbness or tingling in legs, generalized arthralgias or myalgias, back pain, or night sweats. The review of systems is otherwise negative other than for that already noted above, and at least 10 systems have been reviewed. Physical Exam Date Time Temp Pulse Resp B/P (MAP) Pulse Ox O2 Delivery O2 Flow Rate FiO2 06/07/17 16:20 58 18 150/88 95 Room Air 06/07/17 14:26 57 16 140/82 97 Room Air 06/07/17 13:08 57 15 145/72 95 Room Air 06/07/17 12:51 60 06/07/17 12:39 97 Room Air 06/07/17 12:25 36.4 62 16 138/85 96 Room Air The patient is awake, well-developed and adequately nourished, alert and oriented 3, normocephalic and atraumatic, lying in bed and in no acute distress. HEENT--PERRL, EOMI, mucous membranes and oropharynx dry. Neck--mild tenderness over left paraspinal and scapular muscles, no JVD or bruits, thyroid normal, trachea midline, no adenopathy. Heart--normal S1 and S2, no extra beats, no murmurs, rubs or gallops. Lungs--clear bilaterally with good air movement, no respiratory distress, no accessory muscle use. Abdomen--normal bowel sounds and soft, nontender and nondistended, no hernias or masses, no organomegaly. Extremities--no cyanosis, clubbing or edema. There are good distal pulses b/l. Dermatologic--normal skin turgor, normal color, warm and dry, no abnormal lymph nodes, no rash. Neurologic--cranial nerves II through XII grossly intact. Decreased sensation to light touch left upper extremity greater than right. Motor strength equal upper and lower extremities bilaterally. Rheumatologic--normal range of motion, nontender, muscles and joints. Psychiatric--normal affect. Laboratory Results Last 24 Hours Test 06/07/17 12:40 06/07/17 12:54 06/07/17 13:10 White Blood Count 3.84 K/uL Red Blood Count 4.89 M/uL Hemoglobin 15.2 g/dL Hematocrit 43.6 % Mean Corpuscular Volume 89.2 fL Mean Corpuscular Hemoglobin 31.1 pg Mean Corpuscular Hemoglobin Concent 34.9 g/dl Platelet Count 91 K/uL Mean Platelet Volume 12.0 fL Neutrophils (%) (Auto) 56.0 % Lymphocytes (%) (Auto) 30.5 % Monocytes (%) (Auto) 7.6 % Eosinophils (%) (Auto) 4.4 % Basophils (%) (Auto) 0.5 % Neutrophils # (Auto) 2.15 K/uL Lymphocytes # (Auto) 1.17 K/uL Monocytes # (Auto) 0.29 K/uL Eosinophils # (Auto) 0.17 K/uL Basophils # (Auto) 0.02 K/uL RDW Standard Deviation 39.6 fL RDW Coefficient of Variation 12.4 % Immature Granulocyte % (Auto) 1.0 % Immature Granulocyte # (Auto) 0.04 K/uL Platelet Estimate DECREASED Prothrombin Time 10.5 SECONDS Prothromb Time International Ratio 1.0 Activated Partial Thromboplast Time 24.5 SECONDS Partial Thromboplastin Ratio 0.9 Sodium Level 137 mmol/L Potassium Level 4.1 mmol/L Chloride Level 106 mmol/L Carbon Dioxide Level 27 mmol/L Anion Gap 5.0 mmol/L Blood Urea Nitrogen 19 mg/dl Creatinine 1.10 mg/dl Est Creatinine Clear Calc Drug Dose 87.3 ml/min Estimated GFR () 86.5 Estimated GFR (Non- 74.6 BUN/Creatinine Ratio 17.4 Random Glucose 146 mg/dl Calcium Level 9.1 mg/dl Total Creatine Kinase 151 U/L Creatine Kinase MB 2.0 ng/ml Creatine Kinase MB Ratio 1.3 Troponin I < 0.015 ng/ml Bedside Prothrombin Time INR 1.0 Bedside Glucose 125 mg/dl Urine Color YELLOW Urine Appearance CLEAR Urine pH 5.5 Urine Specific [place] 1.030 Urine Protein NEG Urine Glucose (UA) NEG Urine Ketones NEG Urine Occult Blood NEG Urine Nitrite NEG Urine Bilirubin NEG Urine Urobilinogen NEG Urine Leukocyte Esterase NEG Urine Opiates Screen NEG Urine Methadone, Qualitative NEG Urine Barbiturates NEG Urine Phencyclidine (PCP) Level NEG Ur Amphetamine/Methamphetamine NEG MDMA (Ecstasy) Screen NEG Urine Benzodiazepines Screen NEG Urine Cocaine Metabolite NEG Urine Marijuana (THC) POS Assessment & Plan Bilateral upper extremity dysesthesias, left worse than right/cervical paraspinal muscle spasm-- Symptoms are more suggestive of orthopedic process involving cervical spine, as confirmed by CT of cervical spine. Would recommend discharge to home on baclofen 10 mg by mouth 3 times a day when necessary along with heat and stretching with range of motion exercises. He should follow-up with his PCP Dr. Darnell in 1 week or when necessary sooner. His return to the emergency department should he experience any worsening of present symptoms or development of new symptoms. Hypertension--continue metoprolol succinate 100 mg every morning and enalapril 10 mg by mouth every morning. Hyperlipidemia--continue atorvastatin 40 mg by mouth every evening. GERD--continue pantoprazole 40 mg by mouth every morning. Hepatic cirrhosis--continue folic acid, mag oxide, lactulose and thiamine as outpatient.
== END 2017-06-07 16:33 | disposition home or self-care (01) ==
LOC: C.EDB 12:22 → C.EDA 16:33
DX: G45.9 Transient cerebral ischemic attack, unspecified (principal); M54.2 Cervicalgia; I10 Essential (primary) hypertension; I25.10 Atherosclerotic heart disease of native coronary artery without angina pectoris; I44.4 Left anterior fascicular block; I45.10 Unspecified right bundle-branch block; E78.5 Hyperlipidemia, unspecified; K74.60 Unspecified cirrhosis of liver; K21.9 Gastro-esophageal reflux disease without esophagitis; I73.9 Peripheral vascular disease, unspecified; F12.90 Cannabis use, unspecified, uncomplicated; Z95.5 Presence of coronary angioplasty implant and graft; Z87.442 Personal history of urinary calculi

== ENCOUNTER → 2017-07-16 | Outpatient (CLI) | payer OTHER ==
[~2017-07-16] MED LIST changes: -CHOL100010 PO; +CHOL100041 PO; -SERT50TA PO
[2017-07-16 16:17] LABS: HEMATOCRIT 44.5 % (42-52); MEAN CELL VOLUME 90.1 fL (80-100); MEAN CORPUSCULAR HEMOGLOBIN 31.2 pg (25-34); MEAN CORPUSCULAR HGB CONC 34.6 g/dl (32-36); RED BLOOD COUNT 4.94 M/uL (4.7-6.1); WHITE BLOOD COUNT 4.33 K/uL (4.8-10.8)
[2017-07-16 16:21] LABS: MEAN PLATELET VOLUME 11.7 fL (7.4-10.4); PLATELET COUNT 92 K/uL (130-400)
[2017-07-16 16:41] LABS: BASO % 0.5 %; BASO ABS # 0.02 K/uL (0-0.2); COMPLETE YES; EOS % 3.9 %; LYMPH % 32.3 %; MONO % 9.5 %; NEUT % 53.8 %
[2017-07-16 16:54] LABS: ALT/SGPT 32 U/L (12-78); BLOOD UREA NITROGEN 20 mg/dl (7-18); BUN/CREATININE RATIO 17.7 (10-20); CALCIUM 9.1 mg/dl (8.5-10.1); CARBON DIOXIDE 27 mmol/L (21-32); CHLORIDE 104 mmol/L (98-107); CHOLESTEROL 103 mg/dl (0-200); CREATININE 1.11 mg/dl (0.60-1.40); GLUCOSE 78 mg/dl (70-99); POTASSIUM 3.9 mmol/L (3.5-5.1); SODIUM 137 mmol/L (136-145); TRIGLYCERIDES 69 mg/dl (0-150); VERY LOW DENSITY LIPOPROT CALC 14 mg/dl
[2017-07-16 16:57] LABS: ALB/GLOB RATIO 1.2 (0.9-2); ALKALINE PHOSPHATASE 70 U/L (45-117); AST/SGOT 28 U/L (15-37); CHOLESTEROL/HDL RATIO 2.3; FERRITIN 34.1 ng/ml (8.0-388.0); HDL CHOLESTEROL 44 mg/dl; LDL CHOLESTEROL CALCULATED 45 mg/dl; TOTAL IRON BINDING CAPACITY 353 mcg/dl (250-450)
[2017-07-19 11:36] LABS: AFP TUMOR MARKER SERUM 1.7 NG/ML (<6.1)
== END | disposition home or self-care (01) ==
LOC: C.LAB1850 15:16
PROVIDERS: ATTEND Internal Medicine
DX: E78.5 Hyperlipidemia, unspecified (principal); K74.60 Unspecified cirrhosis of liver; E83.19 Other disorders of iron metabolism; E55.9 Vitamin D deficiency, unspecified; D69.6 Thrombocytopenia, unspecified

== ENCOUNTER → 2017-09-22 | Outpatient (CLI) | payer OTHER ==
[~2017-09-22] MED LIST changes: -FOLI1TAB7 PO; +FOLI1TAB8 PO
--- NOTE | 2017-09-22 09:12 | DIAGNOSTIC IMAGING REPORT ---
ULTRASOUND RIGHT UPPER QUADRANT ABDOMEN CLINICAL HISTORY: Cirrhosis. COMPARISON STUDY: Abdominal CT dated 05/19/2015. TECHNIQUE: Real-time, grayscale, and color flow sonography of the right upper quadrant of the abdomen was performed. Images are reviewed in the transverse and longitudinal planes. FINDINGS: Liver: The liver is cirrhotic in morphology and heterogeneous in echotexture. There is nodularity of the surface contour. There is no sonographic evidence of hepatic mass lesion. There is no intrahepatic biliary ductal dilatation. The main portal vein is patent. Gallbladder: The gallbladder is surgically absent. The common bile duct measures up to 0.3 cm in diameter. Pancreas: Not well visualized due to overlying bowel gas. Right kidney: Survey images of the right kidney demonstrate normal size and echotexture. There is no hydronephrosis. A 1.2 cm cyst is incidentally noted. Ascites: None. IMPRESSION: 1. The liver is cirrhotic in morphology and heterogeneous in echotexture. 2. The gallbladder surgically absent. 3. The pancreas was not visualized. Electronically signed by: Arisitdes Mendoza M.D. 09/22/2017 9:11 AM Dictated Date/Time: 09/22/2017 9:08 AM
== END | disposition home or self-care (01) ==
LOC: C.ULTR 08:39
PROVIDERS: ATTEND Physician Assistant
DX: K74.60 Unspecified cirrhosis of liver (principal)

== ENCOUNTER → 2017-11-21 | Outpatient (CLI) | payer OTHER ==
[~2017-11-21] MED LIST changes: +GADAVIST IV PRN
--- NOTE | 2017-11-21 11:40 | DIAGNOSTIC IMAGING REPORT ---
ORBIT RADIOGRAPHS 3 VIEWS HISTORY: pre-MRI screening. COMPARISON: None. FINDINGS: There are no radiopaque foreign bodies identified within the orbits. IMPRESSION: No radiopaque foreign bodies identified within the orbits. Electronically signed by: Perez Luke M.D. 11/21/2017 11:38 AM Dictated Date/Time: 11/21/2017 11:38 AM
--- NOTE | 2017-11-21 12:40 | DIAGNOSTIC IMAGING REPORT ---
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 Following the IV administration of 11 mL of Gadavist contrast, additional enhanced images were obtained. FINDINGS: Sagittal T1, axial diffusion, proton density and T2 weighted axial, coronal FLAIR, and pre and post axial T1-weighted images were acquired. These were supplemented with post gadolinium coronal T1 weighted images. No intra or extra-axial mass lesions are visualized. Axial diffusion-weighted images reveal no evidence of acute or subacute infarction. There is no evidence of ventricular dilatation. Proton density T2-weighted and FLAIR images reveal scattered foci of increased T2 signal within the white matter, likely on a small vessel basis. There are old left frontal and left parietal lobe areas of encephalomalacia/infarction There are no abnormal flow voids. No cerebellopontine angle masses are visualized. There are no pathologically enhancing lesions. There are inflammatory changes present within the mastoids left greater than right. There is polypoid mucosal thickening within the right maxillary sinus. IMPRESSION: 1. No evidence of intracranial mass. Specifically, no cerebellopontine angle masses are visualized. There is no evidence of an acoustic neuroma 2. 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 Inflammatory changes within the mastoids left greater than right. Polypoid mucosal thickening within the right maxillary sinus. Electronically signed by: Perez Luke M.D. 11/21/2017 12:38 PM Dictated Date/Time: 11/21/2017 12:32 PM
== END | disposition home or self-care (01) ==
LOC: C.MRIBC 11:19
PROVIDERS: ATTEND Physician Assistant
DX: H93.12 Tinnitus, left ear (principal); H90.42 Sensorineural hearing loss, unilateral, left ear, with unrestricted hearing on the contralateral side

== ENCOUNTER → 2017-12-29 | Outpatient (CLI) | payer OTHER ==
[~2017-12-29] MED LIST changes: -GADAVIST IV PRN
[2017-12-29 12:26] LABS: ALBUMIN 4.1 gm/dl (3.4-5.0); TOTAL PROTEIN 7.2 gm/dl (6.4-8.2)
== END | disposition home or self-care (01) ==
LOC: C.LAB1850 10:44
PROVIDERS: ATTEND Internal Medicine Cardiovascular Disease
DX: E78.5 Hyperlipidemia, unspecified (principal)